=== PATIENT | male | born 1985 | race Caucasian/White ===

== ENCOUNTER 2017-07-09 19:34 | Emergency (ER) | payer OTHER ==
[~2017-07-09] VITALS: Ht 188 cm; Wt 180.2 kg
[~2017-07-09 19:34] MED LIST: AUGMENTIN875 MG PO; MOTRIN600 MG PO; TOPIRAMATE25 MG PO
[2017-07-09] MEDS ORDERED: ULTRAM50 MG PO (22:39)
[2017-07-09 22:44] VITALS: BP 130/76
== END 2017-07-09 22:45 | disposition home or self-care (01) ==
LOC: EME 19:34
PROC: 2W3CX1Z Immobilization of Right Lower Arm using Splint (ICD-10-PCS; principal; 2017-07-09)
DX: S62.141A Displaced fracture of body of hamate [unciform] bone, right wrist, initial encounter for closed fracture (principal); W22.8XXA Striking against or struck by other objects, initial encounter; F17.200 Nicotine dependence, unspecified, uncomplicated
CPT/HCPCS: 73130; 99281; 99284

== ENCOUNTER 2018-04-28 21:50 | Emergency (ER) | payer OTHER ==
[~2018-04-28] VITALS: Ht 190.5 cm; Wt 182.9 kg
[~2018-04-28 21:50] MED LIST changes: +ULTRAM50 MG PO
[2018-04-28 22:17] LABS: HEMATOCRIT 41.2 % (38.0-50.0); HEMOGLOBIN 13.2 G/DL (12.5-16.6); MCH 26.4 PG (29.0-34.0); MCV 82.4 FL (86-99); PLATELET COUNT 383 K/uL (156-360); RBC DIS.WIDTH-CV 15.1 % (11.8-14.6); RBC DIS.WIDTH-SD 45.7 % (39-53); WHITE BLOOD COUNT 14.1 K/uL (4.1-10.2)
[2018-04-28 22:25] LABS: ALBUMIN 4.2 g/dL (3.2-4.8); CHLORIDE 107 mEq/L (99-109); POTASSIUM 3.9 mEq/L (3.7-5.4); SODIUM 142 mEq/L (136-147)
[2018-04-28 22:27] LABS: GLUCOSE 117 mg/dL (70-99)
[2018-04-28 22:28] LABS: TOTAL PROTEIN 7.9 g/dL (6.4-8.3)
[2018-04-28 22:29] LABS: TOTAL BILIRUBIN 0.4 mg/dL (0.0-1.0)
[2018-04-28 22:31] LABS: ALKALINE PHOSPHATASE 95 IU/L (3-129); CREATININE 1.2 mg/dL (0.6-1.3); GFR ESTIMATE (CALCULATED) > 59 mL/min/ (58.99-99999)
[2018-04-28 22:32] LABS: UREA NITROGEN (BUN) 15 mg/dL (9-23)
[2018-04-28 22:33] LABS: AST (GOT) 25 IU/L (2-34)
[2018-04-28 22:34] LABS: ALT (GPT) 24 IU/L (3-49)
[2018-04-28 23:47] LABS: APPEARANCE CLEAR ((CLEAR)); BILIRUBIN SMALL; BLOOD MODERATE; COLOR AMBER ((YELLOW)); GLUCOSE (STRIP) NEGATIVE; KETONES 5; LEUKOCYTES TRACE; NITRITE NEGATIVE; PROTEIN (STRIP) 30; SPECIFIC GRAVITY 1.034 (1.000-1.030)
[2018-04-28 23:49] LABS: BACTERIA NONE SEEN /HPF; EPITHELIAL CELLS RARE /HPF; MUCUS TRACE /LPF; RED BLOOD CELLS TNTC /HPF (0-5); UCUL ADDED? YES; WHITE BLOOD CELLS 0-5 /HPF (0-5)
[2018-04-29] MEDS ORDERED: FLOMAX0.4 MG PO (01:55)
[2018-04-29] MEDS ORDERED: NORCO 5/3251 TABLET PO (01:55)
[2018-04-29] MEDS ORDERED: MOTRIN600 MG PO (01:57)
[2018-04-29 02:18] VITALS: BP 163/79
== END 2018-04-29 02:20 | disposition home or self-care (01) ==
LOC: EME 21:50
DX: N13.2 Hydronephrosis with renal and ureteral calculous obstruction (principal); N50.812 Left testicular pain; F17.200 Nicotine dependence, unspecified, uncomplicated
CPT/HCPCS: 74176; 76870; 80053; 81003; 85027; 87086; 99281; 99284; J1885